=== PATIENT | male | born 1990 | race Asian ===

== ENCOUNTER 2021-04-08 15:56 | Emergency (ER) | payer OTHER ==
[~2021-04-08] VITALS: Ht 177.8 cm; Wt 66.2 kg
[2021-04-08 16:05] VITALS: BP 126/76
--- NOTE | 2021-04-08 16:22 | NUR ---
urine sample dropped off at lab with tony mccloud
[2021-04-08] MEDS ORDERED: cefTRIAXone 500 MG in LIDOCAINE MPF 1% 1 ML IM ONE (16:45)
[2021-04-08 16:48] LABS: APPEARANCE,URINE CLEAR (CLEAR); BILIRUBIN,URINE NEGATIVE (NEGATIVE); BLOOD, URINE NEGATIVE (NEGATIVE); COLOR,URINE YELLOW (YELLOW); LEUKOCYTE ESTERASE ,URINE TRACE (NEGATIVE); NITRITE, URINE NEGATIVE (NEGATIVE); UGLUCOSE NEGATIVE (NEGATIVE)
[2021-04-08 16:57] LABS: RBC,URINE NONE SEEN /HPF (0-5); WBC,URINE NONE SEEN /HPF (0-5)
[2021-04-08] MEDS ORDERED: LIDOCAINE MPF 1% 5 ML ONE (17:16)
[2021-04-08] MEDS ORDERED: cefTRIAXone 500 MG VIAL ONE (17:16)
--- NOTE | 2021-04-08 17:18 | NUR ---
30 Y/O MALE C/O UTI SYMPTOMS SINCE YESTERDAY. STATES PARTNER TESTED + FOR CHYLAMDIA AND GONORRHEA. 06/09 PAIN. MEDHX: CARLEEN KIRBY
[2021-04-08] MEDS ORDERED: DOXY-690 PO (18:11)
[2021-04-08 18:18] VITALS: BP 126/76
--- NOTE | 2021-04-08 18:18 | NUR ---
Patient discharged with v/s stable. Written and verbal after care instructions given and explained. Patient alert, oriented and verbalized understanding of instructions. Ambulatory with steady gait. All questions addressed prior to discharge. ID band removed. Patient advised to follow up with PMD. Rx of VIBRAMYCIN given. Patient educated on indication of medication including possible reaction and side effects. Opportunity to ask questions provided and answered.
== END 2021-04-08 18:18 | disposition home or self-care (01) ==
LOC: MED 15:56
DX: R30.9 Painful micturition, unspecified (principal); Z11.3 Encounter for screening for infections with a predominantly sexual mode of transmission; Z79.899 Other long term (current) drug therapy
CPT/HCPCS: 36415; 81001; 86592; 86703; 96372; 99283; J0696; J2001